=== PATIENT | male | born 1935 | race Caucasian/White ===

== ENCOUNTER 2019-08-13 08:49 | Outpatient (CLI) | payer MEDICARE, OTHER, SELFPAY ==
--- NOTE | 2019-08-13 | EST_ITS ---
Patient Info Name: Clayton Feliciano Age: 83 years : 1935 Gender: Male Ht: 70 in Wt: 155 lbs BSA: 1.86 m2 Exam Date: 08/13/2019 11:49 AM Exam Location: [facility] Stress Patient Status: Outpatient Admit Date: 08/13/2019 Staff Ordering Physician: Ulises Riggins MD Attending Provider: Ulises Riggins MD Exercise Technologist: Mal Guthrie RDCS, RT Exercise Physician: Humberto Healy DO Exam Type: CA stress batsheva w NM Study Info A regadenoson stress test was performed. Summary 1. 1. Negative lexiscan stress test for ischemic ST changes by ECG criteria. 2. 2. Baseline hypertension. 3. 3. Nuclear scan to follow and will be reported separately. Please correlate with it. 4. 4. Patient informed of the above results. Protocol: Lexiscan Stress ECG Details Stage: REST Duration (min): 5 min : 22 sec HR (bpm): 57 SBP (mmHg): 183 DBP (mmHg): 82 Stage: REST Duration (min): 7 min : 54 sec HR (bpm): 60 SBP (mmHg): 183 DBP (mmHg): 82 Stage: STAGE 1 Duration (min): 1 min : 0 sec HR (bpm): 80 SBP (mmHg): 183 DBP (mmHg): 82 Stage: RECOVERY Duration (min): 1 min : 0 sec HR (bpm): 78 SBP (mmHg): 187 DBP (mmHg): 74 Stage: RECOVERY Duration (min): 2 min : 0 sec HR (bpm): 75 SBP (mmHg): 187 DBP (mmHg): 74 Stage: RECOVERY Duration (min): 3 min : 0 sec HR (bpm): 74 SBP (mmHg): 167 DBP (mmHg): 80 Stage: RECOVERY Duration (min): 3 min : 32 sec HR (bpm): 69 SBP (mmHg): 167 DBP (mmHg): 80 Rest HR: 60 bpm Peak HR: 83 bpm Rest Sys BP: 183 mmHg Peak Sys BP: 187 mmHg Max Pred HR: 136 bpm % Max Pred HR: 61 % Target HR: 116 bpm Max RPP: 15,521 bpm*mmHg Termination Reason: Completed protocol Cardiac Symptoms: Shortness of breath Total Time: 1 min : 0 sec Rest Kelley BP: 82 mmHg Peak Kelley BP: 74 mmHg Total Dose: 0.4 mg Resting ECG Sinus rhythm, PAC's, IVCD. Stress ECG No ST changes. Arrhythmias None. Report Signatures
--- NOTE | ~2019-08-13 | NM_ITS ---
EXAMINATION: NM batsheva stress w perfusion DATE: 08/13/2019 13:06 INDICATION: Coronary atherosclerosis. TECHNIQUE: Rest images were obtained following intravenous administration of 11.5 mCi Tc99m tetrofosm in (Myoview). The patient was infused intravenously with Lexiscan (regadenoson). Then, 30 mCi Tc99m t etrofosmin (Myoview) was administered intravenously, and stress images were obtained. Data was recons tructed into short axis and horizontal and vertical long axis SPECT images. Gated SPECT images were a lso obtained. COMPARISON: None. FINDINGS: There is a small, mild, fixed perfusion defect involving apical lateral and mid anterolater al segments of left ventricle, consistent with infarct. No reversible component to suggest ischemia. There is no segmental wall motion abnormality. Left ventricular ejection fraction measures 55%. IMPRESSION: 1. 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 2. Normal left ventricular ejection fraction measuring 55%. Reviewed, dictated and finalized at location A. 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 Small area of mild infarct involving apical lateral and mid anterolateral se gments of left ventricle. 2. Normal left ventricular ejection fraction measuring 55%.
== END 2019-08-13 08:50 | disposition home or self-care (01) ==
LOC: ANHCARD 08:57
PROVIDERS: PCP Internal Medicine; Visit Provider Internal Medicine
DX: I25.10 Atherosclerotic heart disease of native coronary artery without angina pectoris (principal); I10 Essential (primary) hypertension
CPT/HCPCS: 78452; 93017; A9502; J2785

== ENCOUNTER 2020-09-09 13:52 | Outpatient (CLI) | payer MEDICARE, OTHER, SELFPAY ==
[2020-09-09 14:43] LABS: Basophils Absolute Auto 0.1 K/mm3 (0.0-0.1); Eosinophils Absolute Auto 0.3 K/mm3 (0-0.3); Eosinophils Percent Auto 5.8 % (0-4.4); Hematocrit 42.7 % (42.0-52.0); Hemoglobin 14.5 g/dL (14.0-18.0); Immature Granulocyte Absolute 0.01 K/mm3 (0.00-0.031); Immature Granulocyte Percent A 0.2 % (0-0.5); Immature Platelet Fraction Pct 9.6 % (0.9-11.2); Lymphocytes Absolute Auto 0.91 K/mm3 (0.9-3.2); Lymphocytes Percent Auto 17.6 % (18.3-44.2); Mean Corpuscular Hemoglobin 31.3 pg (26-34); Mean Platelet Volume 10.8 fl (7.4-10.4); Monocytes Absolute Auto 0.5 K/mm3 (0.1-0.6); Monocytes Percent Auto 9.3 % (2.6-8.5); Neutrophils Absolute Auto 3.4 K/mm3 (1.3-6.7); Neutrophils Percent Auto 66.1 % (45.5-73.1); Platelet Count Result 131 k/mm3 (150-375); Red Blood Count 4.64 M/mm3 (4.6-6.20); Red Cell Distribution Width 12.2 % (11.5-14.5); White Blood Count 5.2 K/mm3 (4.5-10.0)
[2020-09-09 14:57] LABS: Add Urine Microscopic? YES; Appearance Urine Clear (Clear); Bilirubin Urine Negative (Negative); Blood Urine 1+ (Negative); Color Urine Yellow (Yellow); Glucose Urine UA Negative (Negative); Ketones Urine Negative (Negative); Leukocyte Esterase Ur Negative LEU/UL (NEGATIVE); Mucus Urine Rare /lpf; Nitrate Urine Negative (Negative); Protein Urine 1+ mg/dL (Negative); Specific Grav Ur 1.027 (1.001-1.035); Squamous Epithelial Cell Urine Rare /hpf (Few); WBC Urine 0-3 /hpf (0-3)
[2020-09-09 15:07] LABS: LDL Cholesterol Direct 74 mg/dL
[2020-09-09 15:09] LABS: Anion Gap 5 mmol/L (8-16); Blood Urea Nitrogen 29 mg/dL (9-20); Calcium 8.8 mg/dL (8.4-10.2); Carbon Dioxide 30 mmol/L (22-30); Chloride 105 mmol/L (98-107); Cholesterol 159 mg/dL (0-200); Estimated Glomerular Filt Rate > 60; Glucose 89 mg/dL (75-110); HDL Direct 59 mg/dL; Sodium 140 mmol/L (137-145); Triglycerides 144 mg/dL (<150)
[2020-09-09 15:29] LABS: Large Platelets Present; Platelet Estimate Adequate (Adequate)
[2020-09-09 16:01] LABS: Folic Acid 10.5 ng/mL (2.76->20); Vitamin B12 > 1000.0 pg/mL (239-931)
[2020-09-09 16:23] LABS: Potassium 4.3 mmol/L (3.4-5.0)
== END 2020-09-09 13:53 | disposition home or self-care (01) ==
LOC: ANHLAB 13:55
PROVIDERS: PCP Internal Medicine; Visit Provider Internal Medicine
DX: E78.2 Mixed hyperlipidemia (principal); Z79.899 Other long term (current) drug therapy
CPT/HCPCS: 36415; 80048; 80061; 81001; 82607; 82746; 83036; 84443; 85025; 85055

== ENCOUNTER 2020-09-16 12:44 | Outpatient (CLI) | payer MEDICARE, OTHER, SELFPAY ==
--- NOTE | ~2020-09-16 | CT_ITS ---
EXAMINATION: CTA chest DATE: 09/16/2020 13:30 INDICATION: Thoracic aortic aneurysm without rupture. TECHNIQUE: Computed tomographic angiography (CTA) of the chest was performed with 130 mL Omnipaque-35 0 intravenous contrast. Automated exposure control and iterative reconstruction technique were employ ed. The dose-length product was 303.88 mGy-cm. Maximum intensity projection 3D-reconstructions of the aorta and other arteries were constructed by the technologist on a separate workstation. COMPARISON: None. FINDINGS: The lungs demonstrate mild atelectasis. No pleural effusion. Cardiomegaly is noted. There a re coronary artery calcifications. No pericardial effusion. The aorta measures 3.9 cm at the sinuses of Valsalva, 3.4 cm at the sinotubular junction, 4.3 cm in the mid ascending aorta, 2.4 cm at the ist hmus, 3.7 cm in the proximal descending aorta, and 2.6 cm in the distal descending thoracic aorta. Th ere are gallstones in the gallbladder, which is normal in size. There is a 1.7 cm low-attenuation les ion in the spleen, likely benign. There are old healed bilateral rib fractures. There is mild chronic height loss of multiple vertebral bodies. There is mild thoracic spondylosis. IMPRESSION: 1. Aortic ectasia measuring 4.3 cm in the mid ascending aorta. Reviewed, dictated and finalized at location A. 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
--- NOTE | ~2020-09-16 | CT_ITS ---
EXAMINATION: CT abdomen pelvis wo/w con DATE: 09/16/2020 13:30 INDICATION: Hematuria TECHNIQUE: Computed tomography (CT) of the abdomen and pelvis was performed without and with 130 cc O mnipaque 350 intravenous contrast. The dose-length product was 711.79 mGy-cm. Automated exposure cont rol and iterative reconstruction technique were employed. COMPARISON: CT dated 09/16/2020 FINDINGS: There is subsegmental atelectasis of the lower lungs. Cardiomegaly. No significant pleural or pericardial effusion. There are gallstones. There are small bilateral renal cysts, largest in the right kidney measuring 11 mm. No renal stones. No hydronephrosis. No ureteral stones. Prostate gland is enlarged with bladder base impression. There is a urachal remnant. There is a 1.7 cm mass of the s pleen which is hypovascular, likely benign cyst or hemangioma. The pancreas and adrenal glands are un remarkable. Nonobstructive bowel gas pattern colonic diverticulosis without evidence for diverticulit is. No acute osseous abnormality. Mild osteoarthritis of the hips. Mild lumbar spondylosis. There is grade 1 spondylolisthesis at L5-S1 secondary to spondylolysis. IMPRESSION: 1. Cholelithiasis. 2: Enlarged prostate gland. 3: Cardiomegaly. 4: No findings to account for hematuria. Reviewed, dictated and finalized at location A. ICE CENTER SUPERVISOR
== END 2020-09-16 12:45 | disposition home or self-care (01) ==
PROVIDERS: PCP Internal Medicine; Visit Provider Internal Medicine
DX: R31.9 Hematuria, unspecified (principal); I71.2 Thoracic aortic aneurysm, without rupture; K80.20 Calculus of gallbladder without cholecystitis without obstruction; N40.0 Benign prostatic hyperplasia without lower urinary tract symptoms; I51.7 Cardiomegaly
CPT/HCPCS: 71275; 74178; Q9967

== ENCOUNTER 2021-03-01 14:14 | Outpatient (CLI) | payer MEDICARE, OTHER, SELFPAY ==
[2021-03-01 14:58] LABS: Basophils Absolute Auto 0.1 K/mm3 (0.0-0.1); Basophils Percent Auto 0.8 % (0.2-1.2); Eosinophils Absolute Auto 0.3 K/mm3 (0-0.3); Eosinophils Percent Auto 4.9 % (0-4.4); Hematocrit 42.8 % (42.0-52.0); Hemoglobin 14.4 g/dL (14.0-18.0); Immature Granulocyte Absolute 0.02 K/mm3 (0.00-0.031); Immature Granulocyte Percent A 0.3 % (0-0.5); Lymphocytes Absolute Auto 0.86 K/mm3 (0.9-3.2); Lymphocytes Percent Auto 14.2 % (18.3-44.2); Mean Corpuscular HGB Conc 33.6 g/dl (32-36); Mean Corpuscular Hemoglobin 31.2 pg (26-34); Mean Corpuscular Volume 92.8 fl (80-100); Monocytes Absolute Auto 0.6 K/mm3 (0.1-0.6); Neutrophils Absolute Auto 4.2 K/mm3 (1.3-6.7); Neutrophils Percent Auto 69.8 % (45.5-73.1); Platelet Count Result 145 k/mm3 (150-375); Red Blood Count 4.61 M/mm3 (4.6-6.20); Red Cell Distribution Width 12.2 % (11.5-14.5); White Blood Count 6.1 K/mm3 (4.5-10.0)
[2021-03-01 15:07] LABS: Anion Gap 7 mmol/L (8-16); Blood Urea Nitrogen 25 mg/dL (9-20); Calcium 9.2 mg/dL (8.4-10.2); Carbon Dioxide 29 mmol/L (22-30); Chloride 100 mmol/L (98-107); Cholesterol 158 mg/dL (0-200); Estimated Glomerular Filt Rate 48; Glucose 100 mg/dL (65-110); HDL Direct 56 mg/dL; Potassium 4.5 mmol/L (3.4-5.0); Sodium 136 mmol/L (137-145); Triglycerides 139 mg/dL (<150)
[2021-03-01 15:23] LABS: LDL Cholesterol Direct 73 mg/dL
== END 2021-03-01 14:15 | disposition home or self-care (01) ==
PROVIDERS: PCP Internal Medicine; Visit Provider Internal Medicine
DX: E78.2 Mixed hyperlipidemia (principal); Z79.899 Other long term (current) drug therapy
CPT/HCPCS: 36415; 80048; 80061; 84443; 85025

== ENCOUNTER 2021-03-03 12:30 | Outpatient (CLI) | payer MEDICARE, OTHER, SELFPAY ==
--- NOTE | ~2021-03-03 | CT_ITS ---
EXAMINATION: CTA chest DATE: 03/03/2021 13:07 INDICATION: Thoracic aortic aneurysm without rupture TECHNIQUE: Computed tomography (CT) of the chest was performed with 100 cc Omnipaque 350 intravenous contrast. Automated exposure control and iterative reconstruction technique were employed. Exam dose: 464.92 mGy-cm total exam DLP. COMPARISON: 09/16/2020 CTA chest FINDINGS: Stable 4.3 cm transverse dimension of the ascending aorta. Normal caliber at the aortic arc h. Stable approximately 3.4 cm transverse diameter at the proximal descending thoracic aorta. Stable approximately 2.7 cm descending thoracic aorta. No thoracic aortic dissection. Cardiomegaly. No pericardial or pleural effusion. No hilar or mediastinal mass lesion or lymphadenopathy. There is mild infiltrate and/or atelectasis in the lower lobes predominantly. Normal morphology of the adrenal glands. Chronic loss of height of multiple thoracic vertebral bodies, stable since 09/16/2020. Prominent degen erative disease in the lower cervical spine. There is degenerative spurring of the thoracic spine. IMPRESSION: Stable thoracic aortic aneurysm without evidence of dissection or rupture Reviewed, dictated and finalized at Location A. Reviewed, dictated and finalized at location A.
== END 2021-03-03 12:31 | disposition home or self-care (01) ==
LOC: ANHIMG 12:35
PROVIDERS: PCP Internal Medicine; Visit Provider Internal Medicine
DX: I71.2 Thoracic aortic aneurysm, without rupture (principal)
CPT/HCPCS: 71275; Q9967

== ENCOUNTER 2021-03-15 12:58 | Outpatient (CLI) | payer MEDICARE, OTHER, SELFPAY ==
[2021-03-15 13:42] LABS: Anion Gap 8 mmol/L (8-16); Blood Urea Nitrogen 24 mg/dL (9-20); Calcium 8.8 mg/dL (8.4-10.2); Carbon Dioxide 23 mmol/L (22-30); Chloride 108 mmol/L (98-107); Estimated Glomerular Filt Rate > 60; Glucose 140 mg/dL (65-110); Potassium 4.4 mmol/L (3.4-5.0); Sodium 139 mmol/L (137-145)
== END 2021-03-15 12:59 | disposition home or self-care (01) ==
LOC: ANHLAB 13:01
PROVIDERS: PCP Internal Medicine; Visit Provider Internal Medicine
DX: R79.89 Other specified abnormal findings of blood chemistry (principal); Z79.899 Other long term (current) drug therapy
CPT/HCPCS: 36415; 80048

== ENCOUNTER 2021-07-19 14:48 | Outpatient (CLI) | payer MEDICARE, OTHER, SELFPAY ==
[2021-07-19 15:18] LABS: Basophils Absolute Auto 0.1 K/mm3 (0.0-0.1); Basophils Percent Auto 0.9 % (0.2-1.2); Eosinophils Absolute Auto 0.3 K/mm3 (0-0.3); Eosinophils Percent Auto 5.5 % (0-4.4); Hemoglobin 14.6 g/dL (14.0-18.0); Immature Granulocyte Absolute 0.01 K/mm3 (0.00-0.031); Immature Granulocyte Percent A 0.2 % (0-0.5); Immature Platelet Fraction Pct 7.2 % (0.9-11.2); Mean Corpuscular Hemoglobin 31.3 pg (26-34); Mean Corpuscular Volume 92.1 fl (80-100); Mean Platelet Volume 10.8 fl (7.4-10.4); Monocytes Absolute Auto 0.7 K/mm3 (0.1-0.6); Monocytes Percent Auto 11.6 % (2.6-8.5); Neutrophils Absolute Auto 3.7 K/mm3 (1.3-6.7); Neutrophils Percent Auto 65.8 % (45.5-73.1); Platelet Count Result 144 k/mm3 (150-375); Red Blood Count 4.67 M/mm3 (4.6-6.20); Red Cell Distribution Width 12.2 % (11.5-14.5); White Blood Count 5.6 K/mm3 (4.5-10.0)
[2021-07-19 15:27] LABS: Anion Gap 9 mmol/L (8-16); Blood Urea Nitrogen 26 mg/dL (9-20); Carbon Dioxide 25 mmol/L (22-30); Chloride 104 mmol/L (98-107); Cholesterol 162 mg/dL (0-200); Estimated Glomerular Filt Rate > 60; Glucose 96 mg/dL (65-110); HDL Direct 48 mg/dL; Potassium 4.2 mmol/L (3.4-5.0); Sodium 138 mmol/L (137-145); Triglycerides 173 mg/dL (<150)
[2021-07-19 15:39] LABS: LDL Cholesterol Direct 79 mg/dL
[2021-07-19 16:07] LABS: Free T4 Free Thyroxine 0.92 ng/mL (0.78-2.19)
[2021-07-19 16:20] LABS: Hemoglobin A1C 5.4 % (<5.7)
== END 2021-07-19 14:49 | disposition home or self-care (01) ==
PROVIDERS: PCP Internal Medicine; Visit Provider Internal Medicine
DX: R79.9 Abnormal finding of blood chemistry, unspecified (principal); E78.2 Mixed hyperlipidemia; Z79.899 Other long term (current) drug therapy
CPT/HCPCS: 36415; 80048; 80061; 83036; 84439; 84443; 85025; 85055

== ENCOUNTER 2021-11-28 16:14 | Outpatient (CLI) | payer MEDICARE, OTHER, SELFPAY ==
[2021-11-28 16:54] LABS: LDL Cholesterol Direct 73 mg/dL
[2021-11-28 16:59] LABS: Albumin Level 4.1 g/dL (3.5-5.1); Alkaline Phosphatase 176 U/L (38-126); Anion Gap 7 mmol/L (8-16); Aspartate Amino Transferase 28 U/L (17-59); Bilirubin,Total 1.2 mg/dL (0.2-1.3); Blood Urea Nitrogen 25 mg/dL (9-20); Calcium 8.7 mg/dL (8.4-10.2); Carbon Dioxide 28 mmol/L (22-30); Chloride 104 mmol/L (98-107); Cholesterol 173 mg/dL (0-200); Estimated Glomerular Filt Rate > 60; Glucose 103 mg/dL (65-110); HDL Direct 54 mg/dL; Potassium 4.3 mmol/L (3.4-5.0); Sodium 139 mmol/L (137-145); Triglycerides 100 mg/dL (<150)
[2021-11-28 17:26] LABS: Vitamin D 25 Hydroxy 29.6 ng/mL
[2021-11-28 18:10] LABS: Alanine Aminotransferase 28 U/L (6-50)
== END 2021-11-28 16:15 | disposition home or self-care (01) ==
LOC: ANHLAB 16:20
PROVIDERS: PCP Internal Medicine; Visit Provider Internal Medicine
DX: E78.2 Mixed hyperlipidemia (principal); E55.9 Vitamin D deficiency, unspecified; Z79.899 Other long term (current) drug therapy
CPT/HCPCS: 36415; 80053; 80061; 82306

== ENCOUNTER → 2021-12-12 14:59 | Outpatient (REF) | payer MEDICARE, OTHER, SELFPAY | LOC: ANHLAB 14:59 | PROVIDERS: PCP Internal Medicine; Visit Provider Nurse Practitioner | DX: D49.2 Neoplasm of unspecified behavior of bone, soft tissue, and skin (principal) | CPT/HCPCS: 88305 ==

== ENCOUNTER → 2022-01-30 09:47 | Outpatient (REF) | payer MEDICARE, OTHER, SELFPAY | LOC: ANHLAB 09:47 | PROVIDERS: PCP Internal Medicine; Visit Provider Nurse Practitioner | DX: C44.319 Basal cell carcinoma of skin of other parts of face (principal) | CPT/HCPCS: 88305; 88331 ==

== ENCOUNTER 2022-02-28 08:51 | Outpatient (CLI) | payer MEDICARE, OTHER, SELFPAY ==
--- NOTE | ~2022-02-28 | CT_ITS ---
EXAMINATION: CTA chest DATE: 02/28/2022 09:27 INDICATION: Thoracic aortic aneurysm without rupture TECHNIQUE: Computed tomographic angiography (CTA) of the chest was performed with 100 mL Omnipque-350 intravenous contrast. Maximum intensity projection 3D-reconstructions of the aorta and other arterie s were constructed by the technologist on a separate workstation. The dose-length product (DLP) was 3 38.96 mGy-cm. Automated exposure control and iterative reconstruction technique were employed. COMPARISON: 03/03/2021 FINDINGS: The ascending aorta measures 3.9 cm at the sinuses of Valsalva and 4.1 x 4.1 cm in the mid ascending aorta. There is no dissection. There is mild atelectasis. No pleural effusion or pneumothor ax. The lungs are free of focal airspace opacities. No pathologically enlarged thoracic lymph nodes a re identified. Cardiomegaly is noted. Calcified coronary artery atherosclerosis is noted. There is a small sliding hiatal hernia. Stones are present in the neck of the gallbladder. There is mild thoraci c spondylosis. IMPRESSION: 1. Stable ectasia of the ascending aorta measuring up to 4.1 cm. No dissection. Reviewed, dictated and finalized at location B.
[2022-02-28 09:17] LABS: Estimated Glomerular Filt Rate > 60
== END 2022-02-28 08:52 | disposition home or self-care (01) ==
PROVIDERS: PCP Internal Medicine; Visit Provider Internal Medicine
DX: I71.2 Thoracic aortic aneurysm, without rupture (principal)
CPT/HCPCS: 71275; Q9967

== ENCOUNTER 2022-04-05 08:56 | Outpatient (CLI) | payer MEDICARE, OTHER, SELFPAY ==
[2022-04-05 09:25] LABS: Alanine Aminotransferase 29 U/L (6-50); Albumin Level 3.9 g/dL (3.5-5.1); Alkaline Phosphatase 116 U/L (38-126); Anion Gap 7 mmol/L (8-16); Aspartate Amino Transferase 25 U/L (17-59); Bilirubin,Total 1.7 mg/dL (0.2-1.3); Blood Urea Nitrogen 21 mg/dL (9-20); Calcium 8.8 mg/dL (8.4-10.2); Carbon Dioxide 28 mmol/L (22-30); Chloride 103 mmol/L (98-107); Cholesterol 149 mg/dL (0-200); Estimated Glomerular Filt Rate > 60; Glucose 93 mg/dL (65-110); HDL Direct 54 mg/dL; Potassium 4.2 mmol/L (3.4-5.0); Sodium 138 mmol/L (137-145); Triglycerides 81 mg/dL (<150)
[2022-04-05 09:36] LABS: LDL Cholesterol Direct 71 mg/dL
[2022-04-05 10:32] LABS: Folic Acid > 20.0 ng/mL (2.76->20)
[2022-04-05 10:47] LABS: Vitamin D 25 Hydroxy 55.1 ng/mL
== END 2022-04-05 08:57 | disposition home or self-care (01) ==
PROVIDERS: PCP Internal Medicine; Visit Provider Internal Medicine
DX: E78.2 Mixed hyperlipidemia (principal); Z51.81 Encounter for therapeutic drug level monitoring; Z79.899 Other long term (current) drug therapy; E55.9 Vitamin D deficiency, unspecified; E53.8 Deficiency of other specified B group vitamins
CPT/HCPCS: 36415; 80053; 80061; 82306; 82607; 82746

== ENCOUNTER 2022-04-19 09:02 | Outpatient (CLI) | payer MEDICARE, OTHER, SELFPAY ==
--- NOTE | 2022-04-19 09:48 | ECHO_ITS ---
Patient Info Name: Clayton Feliciano Age: 86 years : 1935 Gender: Male Ht: 70 in Wt: 155 lbs BSA: 1.86 m2 HR: 70 bpm BP: 187 / 92 mmHg Technical Quality: Fair Exam Date: 04/19/2022 10:16 AM Exam Location: [facility] Patient Status: Outpatient Admit Date: 04/19/2022 Staff Ordering Physician: Ulises Riggins MD Fountain Roller Assembler: Sridevi Murray RDCS Attending Provider: Ulises Riggins MD Referring Physician: Gilson ÁLVAREZ; Exam Type: CA echo doppler color flow Study Info Indications - atrial fibrillation Complete two-dimensional, color flow and Doppler transthoracic echocardiogram is performed. Summary 1. Complete two-dimensional, color flow and Doppler transthoracic echocardiogram is performed. 2. Left ventricular chamber dimension is normal. 3. Left ventricular systolic function is normal, estimated at 60-65%. 4. There is mildly increased left ventricular wall thickness. 5. The left ventricular diastolic function is grade I diastolic dysfunction. 6. E/e' 18 is elevated. 7. Left atrial chamber dimension is moderately enlarged. 8. There is mild aortic valve sclerosis. 9. There is mild aortic valve regurgitation. 10. There is moderate mitral valve regurgitation. 11. There is mild to moderate tricuspid valve regurgitation. 12. Moderate pulmonary hypertension, estimated pulmonary arterial systolic pressure is 55 mmHg. Left Ventricle E/e' 18 is elevated. Left ventricular chamber dimension is normal. Left ventricular systolic function is normal, estimated at 60-65%. There is mildly increased left ventricular wall thickness. The left ventricular diastolic function is grade I diastolic dysfunction. Right Ventricle Right ventricular systolic function is normal and with normal TAPSE 2.3 cm. Right ventricular chamber dimension is normal. Left Atria Left atrial chamber dimension is moderately enlarged. Right Atria Right atrial chamber dimension is normal. Aortic Valve The aortic valve is trileaflet. There is mild aortic valve sclerosis. There is no aortic valve stenosis. There is mild aortic valve regurgitation. Pulmonic Valve There is no pulmonic regurgitation. Mitral Valve There is no mitral valve stenosis. There is moderate mitral valve regurgitation. Tricuspid Valve There is mild to moderate tricuspid valve regurgitation. Moderate pulmonary hypertension, estimated pulmonary arterial systolic pressure is 55 mmHg. Pericardium/Pleural There is no pericardial effusion. Inferior Vena Cava Normal inferior vena cava with >50% collapse upon inspiration consistent with normal right atrial pressure, 5 mmHg. Aorta The aortic root size at the sinus of Valsalva is normal. Left Ventricular Outflow Tract Name Value Normal LVOT 2D LVOT Diameter 2.2 cm LVOT Doppler LVOT Peak Gradient 3 mmHg LVOT Mean Gradient 2 mmHg LVOT VTI 21 cm LVOT VTI/AV VTI Ratio 0.6 LVOT Stroke Volume 78 ml LVOT CO
--- NOTE | 2022-04-25 16:24 | WPDHOLTEREM ---
Holter/Event Monitor Holter/Event Monitor Date of procedure: 04/19/22 Holter/Event Procedure: 48 Hr Holter Monitor Indications: Atrial fib with SVR Conclusion: 1. 48 hour holter monitor on 04/19/22. 2. Underlying rhythm is sinus rhythm with sinus arrhythmia. HR range 41-109 bpm; average HR 64 bpm. 3. There are 10,093 premature supraventricular complexes, 2,180 supraventricular couplets, 243 supraventricular bigeminy and 784 supraventricular trigeminy. No supraventricular tachycardia. 4. There are 67 premature ventricular complexes. No ventricular tachycardia. 5. There are intermittent nonconducted atrial premature complexes. The longest pause is 2.7 seconds due to nonconducted PAC. 6. No symptoms available for correlation.
== END 2022-04-19 09:03 | disposition home or self-care (01) ==
LOC: ANHCARD 09:04
PROVIDERS: PCP Internal Medicine; Visit Provider Internal Medicine
DX: I48.91 Unspecified atrial fibrillation (principal); I35.1 Nonrheumatic aortic (valve) insufficiency; I34.0 Nonrheumatic mitral (valve) insufficiency; I36.1 Nonrheumatic tricuspid (valve) insufficiency; I27.20 Pulmonary hypertension, unspecified
CPT/HCPCS: 93225; 93226; 93306

== ENCOUNTER 2022-09-19 12:12 | Outpatient (CLI) | payer MEDICARE, OTHER, SELFPAY ==
[2022-09-19 12:41] LABS: Basophils Absolute Auto 0.1 K/mm3 (0.0-0.1); Basophils Percent Auto 0.8 % (0.2-1.2); Eosinophils Absolute Auto 0.2 K/mm3 (0-0.3); Eosinophils Percent Auto 3.1 % (0-4.4); Hematocrit 45.9 % (42.0-52.0); Hemoglobin 15.4 g/dL (14.0-18.0); Immature Granulocyte Absolute 0.01 K/mm3 (0.00-0.031); Immature Granulocyte Percent A 0.2 % (0-0.5); Immature Platelet Fraction Pct 8.2 % (0.9-11.2); Lymphocytes Absolute Auto 0.99 K/mm3 (0.9-3.2); Lymphocytes Percent Auto 16.1 % (18.3-44.2); Mean Corpuscular HGB Conc 33.6 g/dl (32-36); Mean Corpuscular Hemoglobin 31.5 pg (26-34); Mean Corpuscular Volume 93.9 fl (80-100); Mean Platelet Volume 10.8 fl (7.4-10.4); Monocytes Absolute Auto 0.5 K/mm3 (0.1-0.6); Monocytes Percent Auto 8.1 % (2.6-8.5); Neutrophils Absolute Auto 4.4 K/mm3 (1.3-6.7); Neutrophils Percent Auto 71.7 % (45.5-73.1); Platelet Count Result 141 k/mm3 (150-375); Red Blood Count 4.89 M/mm3 (4.6-6.20); Red Cell Distribution Width 12.6 % (11.5-14.5); White Blood Count 6.1 K/mm3 (4.5-10.0)
[2022-09-19 12:50] LABS: Alanine Aminotransferase 31 U/L (6-50); Albumin Level 4.3 g/dL (3.5-5.1); Alkaline Phosphatase 117 U/L (38-126); Anion Gap 4 mmol/L (8-16); Aspartate Amino Transferase 25 U/L (17-59); Bilirubin,Total 1.9 mg/dL (0.2-1.3); Blood Urea Nitrogen 23 mg/dL (9-20); Carbon Dioxide 27 mmol/L (22-30); Chloride 104 mmol/L (98-107); Cholesterol 161 mg/dL (0-200); Estimated Glomerular Filt Rate > 60; Glucose 89 mg/dL (65-110); HDL Direct 58 mg/dL; Potassium 4.6 mmol/L (3.4-5.0); Sodium 135 mmol/L (137-145); Triglycerides 95 mg/dL (<150)
[2022-09-19 12:54] LABS: Hemoglobin A1C 5.2 % (<5.7)
[2022-09-19 13:05] LABS: LDL Cholesterol Direct 71 mg/dL
[2022-09-19 13:12] LABS: Free T4 Free Thyroxine 0.97 ng/mL (0.78-2.19); Vitamin D 25 Hydroxy 61.1 ng/mL
== END 2022-09-19 12:13 | disposition home or self-care (01) ==
PROVIDERS: PCP Internal Medicine; Visit Provider Internal Medicine
DX: E78.2 Mixed hyperlipidemia (principal); Z13.29 Encounter for screening for other suspected endocrine disorder; Z79.899 Other long term (current) drug therapy; Z13.1 Encounter for screening for diabetes mellitus; E55.9 Vitamin D deficiency, unspecified
CPT/HCPCS: 36415; 80053; 80061; 82306; 83036; 84439; 84443; 85025; 85055

== ENCOUNTER 2023-01-19 09:55 | Outpatient (CLI) | payer MEDICARE, OTHER, SELFPAY ==
[2023-01-19 11:15] LABS: Alanine Aminotransferase 29 U/L (6-50); Alkaline Phosphatase 98 U/L (38-126); Anion Gap 5 mmol/L (8-16); Aspartate Amino Transferase 25 U/L (17-59); Bilirubin,Total 1.5 mg/dL (0.2-1.3); Blood Urea Nitrogen 22 mg/dL (9-20); Calcium 8.8 mg/dL (8.4-10.2); Carbon Dioxide 29 mmol/L (22-30); Chloride 105 mmol/L (98-107); Cholesterol 167 mg/dL (0-200); Estimated Glomerular Filt Rate > 60; Glucose 88 mg/dL (65-110); HDL Direct 58 mg/dL; Potassium 4.3 mmol/L (3.4-5.0); Sodium 139 mmol/L (137-145); Triglycerides 89 mg/dL (<150)
[2023-01-19 11:26] LABS: LDL Cholesterol Direct 72 mg/dL
== END 2023-01-19 09:56 | disposition home or self-care (01) ==
PROVIDERS: PCP Internal Medicine; Visit Provider Internal Medicine
DX: E78.2 Mixed hyperlipidemia (principal); Z79.899 Other long term (current) drug therapy
CPT/HCPCS: 36415; 80053; 80061

== ENCOUNTER 2023-09-11 14:19 | Outpatient (CLI) | payer MEDICARE, OTHER, SELFPAY ==
[2023-09-11 14:35] LABS: Basophils Absolute Auto 0.1 K/mm3 (0.0-0.1); Basophils Percent Auto 0.7 % (0.2-1.2); Eosinophils Absolute Auto 0.2 K/mm3 (0-0.3); Eosinophils Percent Auto 2.7 % (0-4.4); Hematocrit 46.8 % (42.0-52.0); Hemoglobin 15.4 g/dL (14.0-18.0); Immature Granulocyte Absolute 0.03 K/mm3 (0.00-0.031); Immature Granulocyte Percent A 0.4 % (0-0.5); Lymphocytes Absolute Auto 0.94 K/mm3 (0.9-3.2); Lymphocytes Percent Auto 14.1 % (18.3-44.2); Mean Corpuscular HGB Conc 32.9 g/dl (32-36); Mean Corpuscular Hemoglobin 30.9 pg (26-34); Mean Corpuscular Volume 93.8 fl (80-100); Mean Platelet Volume 10.7 fl (7.4-10.4); Monocytes Absolute Auto 0.6 K/mm3 (0.1-0.6); Monocytes Percent Auto 9.1 % (2.6-8.5); Neutrophils Absolute Auto 4.9 K/mm3 (1.3-6.7); Platelet Count Result 145 k/mm3 (150-375); Red Blood Count 4.99 M/mm3 (4.6-6.20); Red Cell Distribution Width 12.5 % (11.5-14.5); White Blood Count 6.7 K/mm3 (4.5-10.0)
[2023-09-11 14:47] LABS: Alanine Aminotransferase 28 U/L (6-50); Albumin Level 4.3 g/dL (3.5-5.1); Alkaline Phosphatase 105 U/L (38-126); Anion Gap 6 mmol/L (8-16); Aspartate Amino Transferase 26 U/L (17-59); Bilirubin,Total 1.7 mg/dL (0.2-1.3); Blood Urea Nitrogen 27 mg/dL (9-20); Calcium 8.9 mg/dL (8.4-10.2); Carbon Dioxide 29 mmol/L (22-30); Chloride 103 mmol/L (98-107); Cholesterol 162 mg/dL (0-200); Estimated Glomerular Filt Rate > 60; Glucose 89 mg/dL (65-110); HDL Direct 60 mg/dL; Potassium 4.3 mmol/L (3.4-5.0); Sodium 138 mmol/L (137-145); Triglycerides 79 mg/dL (<150)
[2023-09-11 14:58] LABS: LDL Cholesterol Direct 82 mg/dL
== END 2023-09-11 14:20 | disposition home or self-care (01) ==
PROVIDERS: PCP Internal Medicine; Visit Provider Internal Medicine
DX: E78.2 Mixed hyperlipidemia (principal); Z79.899 Other long term (current) drug therapy
CPT/HCPCS: 36415; 80053; 80061; 85025

== ENCOUNTER 2024-01-29 12:15 | Outpatient (CLI) | payer MEDICARE, OTHER, SELFPAY ==
[2024-01-29 12:42] LABS: Basophils Percent Auto 0.5 % (0.2-1.2); Eosinophils Absolute Auto 0.2 K/mm3 (0-0.3); Eosinophils Percent Auto 4.1 % (0-4.4); Hematocrit 45.1 % (42.0-52.0); Hemoglobin 15.1 g/dL (14.0-18.0); Immature Granulocyte Absolute 0.02 K/mm3 (0.00-0.031); Immature Granulocyte Percent A 0.3 % (0-0.5); Immature Platelet Fraction Pct 8.4 % (0.9-11.2); Lymphocytes Absolute Auto 1.06 K/mm3 (0.9-3.2); Mean Corpuscular HGB Conc 33.5 g/dl (32-36); Mean Corpuscular Hemoglobin 31.4 pg (26-34); Mean Corpuscular Volume 93.8 fl (80-100); Mean Platelet Volume 10.9 fl (7.4-10.4); Monocytes Absolute Auto 0.6 K/mm3 (0.1-0.6); Monocytes Percent Auto 9.3 % (2.6-8.5); Neutrophils Percent Auto 67.8 % (45.5-73.1); Platelet Count Result 127 k/mm3 (150-375); Red Blood Count 4.81 M/mm3 (4.6-6.20); Red Cell Distribution Width 12.3 % (11.5-14.5); White Blood Count 5.9 K/mm3 (4.5-10.0)
[2024-01-29 12:54] LABS: Alanine Aminotransferase 28 U/L (6-50); Albumin Level 4.2 g/dL (3.5-5.1); Alkaline Phosphatase 114 U/L (38-126); Anion Gap 9 mmol/L (4-12); Aspartate Amino Transferase 26 U/L (17-59); Bilirubin,Total 1.7 mg/dL (0.2-1.3); Blood Urea Nitrogen 19 mg/dL (9-20); Calcium 8.9 mg/dL (8.4-10.2); Carbon Dioxide 29 mmol/L (22-30); Chloride 101 mmol/L (98-107); Cholesterol 159 mg/dL (0-200); Estimated Glomerular Filt Rate > 60; Glucose 87 mg/dL (65-110); HDL Direct 63 mg/dL; Potassium 4.5 mmol/L (3.4-5.0); Sodium 139 mmol/L (137-145); Triglycerides 85 mg/dL (<150)
[2024-01-29 13:05] LABS: LDL Cholesterol Direct 79 mg/dL
[2024-01-29 13:29] LABS: Hemoglobin A1C 5.5 % (<5.7)
[2024-01-29 14:11] LABS: Folic Acid > 20.0 ng/mL (2.76->20); Vitamin B12 > 1000.0 pg/mL (239-931)
== END 2024-01-29 12:16 | disposition home or self-care (01) ==
PROVIDERS: PCP Internal Medicine; Visit Provider Internal Medicine
DX: E78.5 Hyperlipidemia, unspecified (principal); I71.21 Aneurysm of the ascending aorta, without rupture; E53.8 Deficiency of other specified B group vitamins; Z79.899 Other long term (current) drug therapy; Z13.1 Encounter for screening for diabetes mellitus
CPT/HCPCS: 36415; 80053; 80061; 82607; 82746; 83036; 85025; 85055

== ENCOUNTER 2024-02-04 13:52 | Outpatient (CLI) | payer MEDICARE, OTHER, SELFPAY ==
--- NOTE | ~2024-02-04 | CT_ITS ---
EXAMINATION: CTA chest DATE: 02/04/2024 14:15 INDICATION: Thoracic aortic aneurysm without dissection. TECHNIQUE: Computed tomographic angiography (CTA) of the chest was performed without and with 100 mL Omnipaque-350 intravenous contrast. Volume-rendered 3D-reconstructions of the aorta and large arterie s were constructed by the technologist on a separate workstation. Automated exposure control and iter ative reconstruction technique were employed. The dose-length product was 350.76 mGy-cm. COMPARISON: 02/28/2022 FINDINGS: Bilateral mild lower lung predominant bronchial wall thickening. Similar pattern of scattered discoid atelectasis/scarring at the bilateral lower lungs. No pneumonia, pulmonary edema or pleural effusion . Cardiomegaly including biatrial enlargement. Atherosclerotic coronary artery calcific lesion. Aorti c valve calcification. Unchanged mild fusiform ectasia of the ascending thoracic aorta measuring up t o 4.3 x 4.1 cm. Tortuous and ectatic descending thoracic aorta measuring up to 3.5 cm at the proximal descending aorta. No aortic dissection. No pulmonary embolism. No pathologically enlarged thoracic l ymphadenopathy. Small sliding-type hiatal hernia. Incompletely visualized likely benign hypodense les ion in the spleen measuring 1.2 cm current study without significant change since 09/16/2020. Multiple small calcified gallstones in the dependent neck of the otherwise normal-appearing gallbladder. Mild thoracic spondylosis with multiple chronic thoracic compression fractures. IMPRESSION: 1. No interval change in an ectatic thoracic aorta measuring up to 4.3 cm in the ascending aorta and 2.5 cm the proximal descending aorta. No acute cardiopulmonary disease. 2. Cholelithiasis. Reviewed, dictated and finalized at location A. IMPRESSION: 1. No interval change in an ectatic thoracic aorta measuring up to 4.3 cm in th e ascending aorta and 2.5 cm the proximal descending aorta. No acute cardiopulm onary disease. 2. Cholelithiasis.
== END 2024-02-04 13:53 | disposition home or self-care (01) ==
LOC: ANHIMG 13:54
PROVIDERS: PCP Internal Medicine; Visit Provider Internal Medicine
DX: I71.20 Thoracic aortic aneurysm, without rupture, unspecified (principal); K80.20 Calculus of gallbladder without cholecystitis without obstruction
CPT/HCPCS: 71275; Q9967

== ENCOUNTER 2024-06-26 10:27 | Outpatient (CLI) | payer MEDICARE, OTHER, SELFPAY | END 2024-06-26 10:28 | disposition home or self-care (01) | LOC: ANHCARD 10:28 | PROVIDERS: Visit Provider Internal Medicine | DX: I49.3 Ventricular premature depolarization (principal); I25.10 Atherosclerotic heart disease of native coronary artery without angina pectoris | CPT/HCPCS: 93242 ==